=== PATIENT | male | born 1940 | race Hispanic/Latino ===

== ENCOUNTER → 2017-10-19 | Day surgery (SDC) | payer OTHER ==
[~2017-10-19] MED LIST: AMLODIPINE BESYL5 M1 PO; ASPIRIN EC81 M1 PO; AUGMENTIN 875-1 EACH PO; BRILINTA90 M1 PO; COLACE100 M1 PO; LEVOTHYROXINE25 MCG PO; LISINOPRIL5 M1 PO; METFORMIN HCL1000 M1 PO; METOPROLOL SUCC25 M1 PO; NAPROSYN375 MG PO; OXYCODONE HCL5 M1 PO; PANTOPRAZOLE SO40 M1 PO; SERTRALINE HCL50 MG PO; SIMVASTATIN20 M2 PO; TAMSULOSIN HCL0.4 M1 PO
--- NOTE | 2017-10-19 19:35 | Operative Report ---
Operative/Inv Procedure Report Surgery Date: 10/19/17 Name of Procedure: Laparoscopic cholecystectomy Pre-Operative Diagnosis: Cholecystitis cholangitis cholecystostomy Post-Operative Diagnosis: Same Estimated Blood Loss: scant Surgeon/Panel Coverer: Philip LEDESMA,Stewart HUANG Anesthesia: general endotracheal tube Operative/Procedure Note Note: Patient was positioned supine. After successful induction of general anesthesia, the patient's abdomen was clipped, prepped and draped in the usual sterile fashion. Local anesthetic was injected at the top of the umbilicus and then a curved horizontal incision little over a centimeter was made there with a 15 blade and then deepened to the midline fascia which was incised vertically a little over a centimeter. Both sides were secured with 0 Vicryl stay sutures and then the thin peritoneal layer was entered, 10 mm Stevenson trocar inserted obliquely to the right, and the gas was turned on to 15 mm. After insufflation and repositioning to reverse Trendelenburg, 3 more dissecting 5 mm trochars were placed in the right subcostal area, first lateral, then mid-subcostal, then subxiphoid. The gallbladder fundus was grasped from the lateral port and retracted up over the edge of the liver as much as we could given the entry of the tube laterally, and then we dissected out the area of the triangle of Calot while retracting the infundibulum caudally / laterally. First the cystic duct was identified, isolated at the neck, clipped 3 times, divided after the second clip and then in similar fashion the cystic artery was identified medially, dissected and divided. Then the gallbladder was from the liver bed using cautery, the tube was cut and then both were lowered into an Endobag and removed through the umbilical incision. We checked for hemostasis and any obvious bile leak from where the tube ran. The instruments and then the trochars were removed letting the gas escape. The fascial incision was closed with a figure 8 Vicryl then all 4 skin incisions were closed with interrupted subcuticular 4-0 Monocryl, followed by Mastisol Steri-Strips and Bandaids. Estimated blood loss was minimal, lap and sponge counts were correct, wound expectancy was clean-contaminated, IV fluids crystalloid, complications none, patient tolerated the procedure well and was returned to the recovery room in satisfactory condition.
== END ==
LOC: STS 03:43
DX: K80.12 Calculus of gallbladder with acute and chronic cholecystitis without obstruction (principal); I10 Essential (primary) hypertension; I25.10 Atherosclerotic heart disease of native coronary artery without angina pectoris; E11.9 Type 2 diabetes mellitus without complications; E03.9 Hypothyroidism, unspecified
CPT/HCPCS: 88304; C9399; J0690; J2250